=== PATIENT | female | born 1955 | race Caucasian/White ===

== ENCOUNTER 2018-05-10 04:18 | Emergency (ER) | payer MEDICARE, BC ==
[~2018-05-10] VITALS: Ht 160 cm; Wt 84.0 kg
[~2018-05-10 04:18] MED LIST: AMLO1CAP71 PO; FENO145T38 PO; FLUO20CA39 PO; MAX25Tt PO; PHEN-824 PO; SYN0.075T PO
[2018-05-10 04:31] VITALS: BP 138/97
[2018-05-10] MEDS ORDERED: cephalexin 250mg capsule PO ONE (04:40)
[2018-05-10] MEDS ORDERED: phenazopyridine 100mg tablet PO ONE (04:40)
[2018-05-10] MEDS ORDERED: CEPH500C5 PO (04:41)
[2018-05-10] MEDS ORDERED: PHEN-716 PO (04:41)
[2018-05-10 04:54] LABS: CLARITY,URINE CLOUDY (Clear); COLOR,URINE YELLOW (Yellow); GLUCOSE, URINE 100 mg/dl (Neg); KETONES,URINE NEGATIVE (Neg); LEUKOCYTE ESTERASE ,URINE LARGE (Neg); NITRITES, URINE NEGATIVE (Neg); OCCULT BLOOD,URINE LARGE (Neg); PROTEIN,URINE >=300 mg/dl (Neg); UROBILINOGEN,URINE 0.2 E.U/dL (0.2-1.0)
[2018-05-10 04:57] LABS: UA COLLECTION TYPE CLN CATCH MIDSTREAM
[2018-05-10 05:01] LABS: BACTERIA,URINE 1+ /HPF (Neg); RBC,URINE TNTC /HPF (0-2); SQUAMOUS EPITHELIAL CELL,UR MODERATE /LPF (FEW); WBC,URINE TNTC /HPF (0-4)
== END 2018-05-10 05:20 | disposition home or self-care (01) ==
LOC: ER 04:19
DX: N39.0 Urinary tract infection, site not specified (principal); E78.00 Pure hypercholesterolemia, unspecified; E11.22 Type 2 diabetes mellitus with diabetic chronic kidney disease; N18.9 Chronic kidney disease, unspecified; Z90.710 Acquired absence of both cervix and uterus
CPT/HCPCS: 81001; 87077; 87088; 87186; 99283

== ENCOUNTER 2019-05-04 08:03 | Emergency (ER) | payer MEDICARE, BC ==
[~2019-05-04] VITALS: Ht 160 cm; Wt 81.0 kg
[~2019-05-04 08:03] MED LIST changes: +CEPH500C5 PO; +PHEN-716 PO
[2019-05-04] MEDS ORDERED: FLUT16SP2 BOTHNARES (08:34)
[2019-05-04] MEDS ORDERED: AMOX500C2 PO (08:34)
[2019-05-04 09:29] VITALS: BP 163/91
== END 2019-05-04 09:33 | disposition home or self-care (01) ==
LOC: ER 08:04
DX: J06.9 Acute upper respiratory infection, unspecified (principal); R42 Dizziness and giddiness; E78.00 Pure hypercholesterolemia, unspecified; E11.22 Type 2 diabetes mellitus with diabetic chronic kidney disease; N18.9 Chronic kidney disease, unspecified; F12.90 Cannabis use, unspecified, uncomplicated; Z90.710 Acquired absence of both cervix and uterus; Z90.89 Acquired absence of other organs; Z79.899 Other long term (current) drug therapy
CPT/HCPCS: 99283

== ENCOUNTER 2019-10-26 16:46 | Emergency (ER) | payer MEDICARE, BC ==
[~2019-10-26] VITALS: Ht 160 cm; Wt 82.0 kg
[~2019-10-26 16:46] MED LIST changes: -CEPH500C5 PO; +FLUT16SP2 BOTHNARES
[2019-10-26 17:40] LABS: BASOPHILS # (AUTO) 0.1 X10'3 (0-0.2); BASOPHILS % (AUTO) 0.8 % (0-1); EOSINOPHILS # (AUTO) 0.2 X10'3 (0-0.9); HEMATOCRIT 38.8 % (35.0-45.0); LYMPHOCYTES # (AUTO) 1.1 X10'3 (1.1-4.8); LYMPHOCYTES % (AUTO) 15.4 % (21-51); MEAN CORPUSCULAR HGB CONC 33.4 g/dL (33.0-36.5); MEAN CORPUSCULAR VOLUME 89.9 FL (78-98); MEAN PLATELET VOLUME 8.1 FL (7.4-10.4); MONOCYTES # (AUTO) 0.5 X10'3 (0-0.9); MONOCYTES % (AUTO) 7.4 % (2-12); NEUTROPHILS # (AUTO) 5.4 X10'3 (1.8-7.7); NEUTROPHILS % (AUTO) 73.4 % (42-75); PLATELET COUNT 324 X10'3 (140-440); RED BLOOD COUNT 4.31 X10'6 (4.20-5.60); RED CELL DISTRIBUTION WIDTH 13.2 % (11.5-14.5); WHITE BLOOD COUNT 7.4 X10'3 (4.5-11.0)
[2019-10-26 17:53] LABS: ALANINE AMINOTRANSFERASE 23 U/L (12-78); ALBUMIN 4.3 G/DL (3.4-5.0); ALBUMIN/GLOBULIN RATIO 1.6 (1.1-1.5); ALKALINE PHOSPHATASE 30 IU/L (46-116); ANION GAP 10 (8-16); ASPARTATE AMINO TRANSFERASE 23 U/L (10-37); BILIRUBIN,TOTAL 0.5 MG/DL (0.1-1.0); BLOOD UREA NITROGEN 27 MG/DL (7-18); BUN/CREATININE RATIO 13.8 (6.6-38.0); CALCIUM 9.1 MG/DL (8.5-10.1); CHLORIDE 107 MMOL/L (99-107); CREATININE 1.96 MG/DL (0.40-0.90); GLUCOSE 89 MG/DL (70-104); LIPASE 354 U/L (73-393); SODIUM 143 MMOL/L (135-145); TOTAL CARBON DIOXIDE 26.2 MMOL/L (24-32); eGFR 26 ML/MIN
[2019-10-26 18:11] LABS: TROPONIN I < 0.04 NG/ML (0.0-0.05)
[2019-10-26 18:33] LABS: CLARITY,URINE SLIGHTLY CLOUDY (Clear); COLOR,URINE YELLOW (Yellow); GLUCOSE, URINE NEGATIVE (Neg); KETONES,URINE NEGATIVE (Neg); LEUKOCYTE ESTERASE ,URINE TRACE (Neg); NITRITES, URINE NEGATIVE (Neg); OCCULT BLOOD,URINE TRACE-INTACT (Neg); PH,URINE 5.5 (4.8-8.0); PROTEIN,URINE >=300 mg/dl (Neg); UROBILINOGEN,URINE 0.2 E.U/dL (0.2-1.0)
[2019-10-26 18:43] LABS: UA COLLECTION TYPE CLN CATCH MIDSTREAM
[2019-10-26] MEDS ORDERED: LORazepam 1 MG tablet PO ONE (18:45)
[2019-10-26] MEDS ORDERED: famotidine 20mg tablet PO ONE (18:45)
[2019-10-26] MEDS ORDERED: pantoprazole 40mg Tablet.DR PO ONE (18:45)
[2019-10-26] MEDS ORDERED: mag hydrox/Alum hydrox/simeth 30ml oral suspension PO ONE (18:45)
[2019-10-26 18:58] LABS: RBC,URINE NONE SEEN /HPF (0-2)
[2019-10-26 18:59] LABS: BACTERIA,URINE 1+ /HPF (Neg); MUCUS STRANDS FEW /LPF (Neg); SQUAMOUS EPITHELIAL CELL,UR MODERATE /LPF (FEW)
[2019-10-26 19:18] VITALS: BP 195/97
[2019-10-26] MEDS ORDERED: ONDA8TAB6 PO (19:39)
[2019-10-26] MEDS ORDERED: PANT-47 PO (19:39)
== END 2019-10-26 19:57 | disposition home or self-care (01) ==
LOC: ER 16:46
DX: I12.9 Hypertensive chronic kidney disease with stage 1 through stage 4 chronic kidney disease, or unspecified chronic kidney disease (principal); R11.10 Vomiting, unspecified; R10.10 Upper abdominal pain, unspecified; E78.00 Pure hypercholesterolemia, unspecified; N18.9 Chronic kidney disease, unspecified; E11.22 Type 2 diabetes mellitus with diabetic chronic kidney disease; F32.9 Major depressive disorder, single episode, unspecified; F12.90 Cannabis use, unspecified, uncomplicated; Z90.710 Acquired absence of both cervix and uterus; Z90.89 Acquired absence of other organs; Z72.89 Other problems related to lifestyle; Z79.899 Other long term (current) drug therapy
CPT/HCPCS: 36415; 80053; 81001; 83690; 83880; 84484; 85025; 87088; 93005; 99284

== ENCOUNTER 2021-12-31 07:50 | Emergency (ER) | payer MEDICARE, BC ==
[~2021-12-31] VITALS: Ht 160 cm; Wt 79.5 kg
[~2021-12-31 07:50] MED LIST changes: +ONDA8TAB6 PO; +PANT-47 PO
[2021-12-31] MEDS ORDERED: methylPREDNISolone sod succ 125mg/2ml vial IM ONE (09:20)
[2021-12-31] MEDS ORDERED: LORazepam 2 mg/ml vial IM ONE (09:20)
[2021-12-31] MEDS ORDERED: HYDR-3965 PO (09:39)
[2021-12-31] MEDS ORDERED: METH4TAB81 PO (09:39)
[2021-12-31] MEDS ORDERED: LORazepam 1 MG tablet PO ONE (09:40)
[2021-12-31] MEDS ORDERED: HYDROcodone/acetaminophen 10/325mg tab PO ONE (10:00)
[2021-12-31] MEDS ORDERED: amLODIPine 5mg tablet PO ONE (10:05)
[2021-12-31 10:39] VITALS: BP 197/89
== END 2021-12-31 10:44 | disposition home or self-care (01) ==
LOC: ER 07:51
DX: M10.9 Gout, unspecified (principal); E78.00 Pure hypercholesterolemia, unspecified; I10 Essential (primary) hypertension; N18.9 Chronic kidney disease, unspecified; F12.90 Cannabis use, unspecified, uncomplicated; Z90.710 Acquired absence of both cervix and uterus; Z98.890 Other specified postprocedural states
CPT/HCPCS: 96372; 99283; J2930

== ENCOUNTER 2022-01-23 10:44 | Emergency (ER) | payer MEDICARE, BC ==
[~2022-01-23] VITALS: Ht 160 cm; Wt 79.5 kg
[~2022-01-23 10:44] MED LIST changes: +HYDR-3965 PO; +METH4TAB81 PO
--- NOTE | 2022-01-23 11:20 | NUR ---
Spoke with Dr. Lin regarding patients symptoms. Dr. Lin gave verbal orders to place flu swab, covid swab, CMP, CBC, and single view chest xray (if patient is symptomatic). Rosemary LAWSON stated that patient did feel SOB today. Xray placed per MD verbal order.
[2022-01-23 11:25] LABS: ALANINE AMINOTRANSFERASE 18 U/L (12-78); ALBUMIN 3.2 G/DL (3.4-5.0); ALBUMIN/GLOBULIN RATIO 0.9 (1.1-1.5); ALKALINE PHOSPHATASE 86 IU/L (46-116); ANION GAP 14 (8-16); ASPARTATE AMINO TRANSFERASE 13 U/L (10-37); BILIRUBIN,TOTAL 0.6 MG/DL (0.1-1.0); BLOOD UREA NITROGEN 44 MG/DL (7-18); BUN/CREATININE RATIO 21.6 (6.6-38.0); CALCIUM 8.8 MG/DL (8.5-10.1); CHLORIDE 103 MMOL/L (99-107); CREATININE 2.04 MG/DL (0.40-0.90); GLUCOSE 117 MG/DL (70-104); POTASSIUM 3.8 MMOL/L (3.5-5.1); SODIUM 138 MMOL/L (135-145); TOTAL CARBON DIOXIDE 21.3 MMOL/L (24-32); TOTAL PROTEIN 6.6 G/DL (6.4-8.2); eGFR 24 ML/MIN
[2022-01-23 11:27] LABS: BASOPHILS % (AUTO) 0.4 % (0-1); EOSINOPHILS # (AUTO) 0.1 X10'3 (0-0.9); EOSINOPHILS % (AUTO) 1.1 % (0-6); HEMATOCRIT 38.4 % (35.0-45.0); HEMOGLOBIN 12.8 g/dl (12.0-16.0); LYMPHOCYTES # (AUTO) 0.9 X10'3 (1.1-4.8); LYMPHOCYTES % (AUTO) 8.3 % (21-51); MEAN CORPUSCULAR HEMOGLOBIN 30.3 PG (27.0-31.0); MEAN CORPUSCULAR HGB CONC 33.3 g/dL (33.0-36.5); MEAN CORPUSCULAR VOLUME 91.2 FL (78-98); MEAN PLATELET VOLUME 8.7 FL (7.4-10.4); MONOCYTES # (AUTO) 0.7 X10'3 (0-0.9); MONOCYTES % (AUTO) 6.2 % (2-12); NEUTROPHILS # (AUTO) 9.5 X10'3 (1.8-7.7); PLATELET COUNT 294 X10'3 (140-440); RED CELL DISTRIBUTION WIDTH 12.7 % (11.5-14.5); WHITE BLOOD COUNT 11.3 X10'3 (4.5-11.0)
[2022-01-23 14:00] VITALS: BP 161/87
== END 2022-01-23 14:09 | disposition home or self-care (01) ==
LOC: ER 10:45
DX: Z13.89 Encounter for screening for other disorder (principal); Z20.822 Contact with and (suspected) exposure to COVID-19; R11.0 Nausea; E78.00 Pure hypercholesterolemia, unspecified; I12.9 Hypertensive chronic kidney disease with stage 1 through stage 4 chronic kidney disease, or unspecified chronic kidney disease; E11.22 Type 2 diabetes mellitus with diabetic chronic kidney disease; N18.9 Chronic kidney disease, unspecified; M10.9 Gout, unspecified; F32.A Depression, unspecified; F12.90 Cannabis use, unspecified, uncomplicated; Z79.899 Other long term (current) drug therapy; Z87.440 Personal history of urinary (tract) infections; Z90.710 Acquired absence of both cervix and uterus; Z90.89 Acquired absence of other organs; Z72.89 Other problems related to lifestyle
CPT/HCPCS: 36415; 71045; 80053; 85025; 87502; 87503; 87635; 99284; C9803; J7030

== ENCOUNTER 2022-05-17 11:09 | Day surgery (SDC) | payer MEDICARE, BC ==
[2022-05-16 13:23] LABS: BASOPHILS % (AUTO) 0.7 % (0-1); EOSINOPHILS # (AUTO) 0.1 X10'3 (0-0.9); EOSINOPHILS % (AUTO) 1.9 % (0-6); HEMATOCRIT 34.9 % (35.0-45.0); HEMOGLOBIN 11.6 g/dl (12.0-16.0); LYMPHOCYTES % (AUTO) 13.7 % (21-51); MEAN CORPUSCULAR HEMOGLOBIN 30.5 PG (27.0-31.0); MEAN CORPUSCULAR HGB CONC 33.2 g/dL (33.0-36.5); MEAN CORPUSCULAR VOLUME 91.9 FL (78-98); MEAN PLATELET VOLUME 7.9 FL (7.4-10.4); MONOCYTES # (AUTO) 0.6 X10'3 (0-0.9); MONOCYTES % (AUTO) 7.8 % (2-12); NEUTROPHILS # (AUTO) 5.3 X10'3 (1.8-7.7); NEUTROPHILS % (AUTO) 75.9 % (42-75); PLATELET COUNT 298 X10'3 (140-440); RED CELL DISTRIBUTION WIDTH 13.1 % (11.5-14.5)
[2022-05-16 13:26] LABS: APTT 24 SECONDS (22-32)
[2022-05-16 13:30] LABS: ALANINE AMINOTRANSFERASE 17 U/L (12-78); ALBUMIN 3.8 G/DL (3.4-5.0); ALBUMIN/GLOBULIN RATIO 1.3 (1.1-1.5); ALKALINE PHOSPHATASE 89 IU/L (46-116); ANION GAP 13 (8-16); ASPARTATE AMINO TRANSFERASE 17 U/L (10-37); BILIRUBIN,TOTAL 0.3 MG/DL (0.1-1.0); BLOOD UREA NITROGEN 51 MG/DL (7-18); BUN/CREATININE RATIO 17.8 (6.6-38.0); CALCIUM 9.3 MG/DL (8.5-10.1); CHLORIDE 106 MMOL/L (99-107); CREATININE 2.86 MG/DL (0.40-0.90); GLUCOSE 126 MG/DL (70-104); POTASSIUM 3.9 MMOL/L (3.5-5.1); SODIUM 142 MMOL/L (135-145); TOTAL CARBON DIOXIDE 22.6 MMOL/L (24-32); TOTAL PROTEIN 6.8 G/DL (6.4-8.2); eGFR 16 ML/MIN
[2022-05-16 13:36] LABS: CLARITY,URINE SLIGHTLY CLOUDY (Clear); COLOR,URINE YELLOW (Yellow); GLUCOSE, URINE 500 mg/dl (Neg); KETONES,URINE TRACE mg/dl (Neg); LEUKOCYTE ESTERASE ,URINE NEGATIVE (Neg); NITRITES, URINE NEGATIVE (Neg); OCCULT BLOOD,URINE NEGATIVE (Neg); PH,URINE 5.5 (4.8-8.0); PROTEIN,URINE >=300 mg/dl (Neg); UROBILINOGEN,URINE 0.2 E.U/dL (0.2-1.0)
[2022-05-16 13:39] LABS: UA COLLECTION TYPE NON-SPECIFIED
[2022-05-16 14:03] LABS: BACTERIA,URINE 2+ /HPF (Neg); HYALINE CASTS 0-3 /LPF (NEGATIVE); RBC,URINE NONE SEEN /HPF (0-2); SQUAMOUS EPITHELIAL CELL,UR MANY /LPF (FEW)
[2022-05-17] VITALS (23 sets, daily range): BP systolic 134–189; BP diastolic 65–101
[~2022-05-17] VITALS: Ht 160 cm; Wt 77.0 kg
[~2022-05-17 11:09] MED LIST changes: -HYDR-3965 PO
[2022-05-17] MEDS ORDERED: DAPA10TA PO (11:46)
[2022-05-17] MEDS ORDERED: ALPR0.5T9 PO (11:46)
[2022-05-17] MEDS ORDERED: ATOR-2 PO (11:46)
[2022-05-17] MEDS ORDERED: HYDR-4069 PO (11:46)
[2022-05-17] MEDS ORDERED: LOSA100T57 PO (11:48)
[2022-05-17] MEDS ORDERED: VITA-268 PO (11:51)
[2022-05-17] MEDS ORDERED: CHOL200012 PO (11:51)
[2022-05-17] MEDS ORDERED: MULT-1249 PO (11:51)
[2022-05-17] MEDS ORDERED: OMEP40CA21 PO (11:54)
[2022-05-17] MEDS ORDERED: LIDOcaine 1% 30ml preserv. free vial IJ STA (12:12)
[2022-05-17] MEDS ORDERED: MIDAZolam 1mg/ml 10ml vial IV ONE (12:15)
[2022-05-17] MEDS ORDERED: acetaminophen w/codeine (30MG) #3 tablet PO PRN (14:05)
[2022-05-17 14:40] LABS: HEMATOCRIT 30.8 % (35.0-45.0); HEMOGLOBIN 10.4 g/dl (12.0-16.0); MEAN CORPUSCULAR HEMOGLOBIN 31.1 PG (27.0-31.0); MEAN CORPUSCULAR HGB CONC 33.8 g/dL (33.0-36.5); MEAN CORPUSCULAR VOLUME 91.9 FL (78-98); MEAN PLATELET VOLUME 7.8 FL (7.4-10.4); PLATELET COUNT 241 X10'3 (140-440); RED BLOOD COUNT 3.35 X10'6 (4.20-5.60); RED CELL DISTRIBUTION WIDTH 12.9 % (11.5-14.5); WHITE BLOOD COUNT 5.6 X10'3 (4.5-11.0)
[2022-05-17 17:01] LABS: HEMATOCRIT 31.2 % (35.0-45.0); HEMOGLOBIN 10.5 g/dl (12.0-16.0); MEAN CORPUSCULAR HGB CONC 33.8 g/dL (33.0-36.5); MEAN CORPUSCULAR VOLUME 91.6 FL (78-98); MEAN PLATELET VOLUME 7.8 FL (7.4-10.4); PLATELET COUNT 251 X10'3 (140-440); RED CELL DISTRIBUTION WIDTH 12.8 % (11.5-14.5); WHITE BLOOD COUNT 5.4 X10'3 (4.5-11.0)
== END 2022-05-17 17:35 | disposition home or self-care (01) ==
LOC: SSTAY O 11:09
PROVIDERS: ATTEND Internal Medicine Critical Care Medicine
DX: R80.9 Proteinuria, unspecified (principal); E11.22 Type 2 diabetes mellitus with diabetic chronic kidney disease; I12.9 Hypertensive chronic kidney disease with stage 1 through stage 4 chronic kidney disease, or unspecified chronic kidney disease; N18.4 Chronic kidney disease, stage 4 (severe); F32.9 Major depressive disorder, single episode, unspecified; Z88.5 Allergy status to narcotic agent; Z79.899 Other long term (current) drug therapy
CPT/HCPCS: 36415; 50200; 76942; 80053; 81001; 85025; 85027; 85576; 85610; 85730; 86885; 86900; 86901; 86920; 87088; 88348; J2250; J3490; J7030; 88300; 88346; A4620; A6449